=== PATIENT | female | born 2000 | race Caucasian/White ===

== ENCOUNTER → 2025-05-02 15:04 | Outpatient (CLI) | payer OTHER, SELFPAY ==
--- NOTE | 2025-05-02 15:05 | DI.US.S_ITS ---
PROCEDURE: US PELVIC COMPLETE INDICATIONS: OVARIAN CYST, KNOWN DERMOID TECHNIQUE: Real-time scanning was performed of the pelvic organs, with image documentation. Additional endovaginal scanning was necessary due to incomplete visualization of the adnexal and endometrial structures by transabdominal scanning. COMPARISON: None. FINDINGS: Uterus: Uterus is anteverted and normal in size at 6.9 x 4.1 x 5.5 cm. The myometrium is homogeneous. The endometrium measures 5.6 mm combined thickness. Ovaries: The right ovary measures 3.9 x 3.2 x 2.0 cm, with a calculated ovarian volume of 12.8 cc. The right ovary is normal in appearance. There is a dermoid in the left adnexa measuring 10.7 x 5.7 x 8.3 cm with calcification and cystic components. No normal left ovarian tissue is identified. Other: No pathologic free abdominal or pelvic fluid. IMPRESSION: Large left adnexal dermoid measuring up to 10.7 cm. No normal left ovarian tissue is identified. Recommend comparison to prior imaging if available and continued follow-up surveillance if no intervention is performed. Normal appearance of the uterus and right ovary. We strive to produce accurate, complete, and clear reports of imaging services. To assist us in improving patient care, this report was composed using standard report templates and voice recognition software. Therefore, it may contain abnormal punctuation, insertions and/or omissions. Occasional wrong-word or sound-alike substitutions may occur. Though we review the report and make efforts to correct it, we do recommend that the report be read carefully in proper context to recognize any text inaccuracies. Dictated by: Marcin Bonner M.D. on 05/02/2025 at 15:56 Approved by: Marcin Bonner M.D. on 05/02/2025 at 15:58
== END ==
LOC: US 15:04
PROVIDERS: PCP Family Medicine; Referring Provider Family Medicine; Visit Provider Family Medicine
DX: D27.1 Benign neoplasm of left ovary (principal); E55.9 Vitamin D deficiency, unspecified
CPT/HCPCS: 36415; 76856; 80053; 82306; 85025

== ENCOUNTER → 2025-05-02 16:10 | Outpatient (CLI) | payer OTHER, SELFPAY ==
[2025-05-02 17:50] LABS: Add Manual Diff / Slide Review NO; Hematocrit 40.8 % (36-46); Hemoglobin 14.1 g/dL (12.0-16.0); Lymphocytes Absolute Auto 2100 /uL (1100-4500); Mean Corpuscular HGB Conc 34.5 % (30-36); Mean Corpuscular Hemoglobin 30.2 PG (26-34); Mean Corpuscular Volume 87.7 fL (80-100); Platelet Count 278 X10^3/uL (150-400)
[2025-05-02 18:16] LABS: Alanine Aminotransferase 12 IU/L (<35); Albumin 5.0 g/dL (3.5-5.0); Albumin Globulin Ratio 1.8 (1.0-2.8); Alkaline Phosphatase 48 U/L (38-126); Blood Urea Nitrogen 13 mg/dL (7-17); Calcium 9.8 mg/dL (8.4-10.2); Carbon Dioxide 27 mmol/L (22-32); Chloride 100 mmol/L (98-107); Estimated Glomerular Filt Rate > 60 mL/min (>60); Globulin 2.8 g/dL (1.7-4.1); Glucose 85 mg/dL (70-99); HEMOLYSIS < 15 (0-50); Potassium 4.1 mmol/L (3.4-5.1); Sodium 137 mmol/L (137-145); Total Protein 7.8 g/dL (6.3-8.2)
[2025-05-02 18:44] LABS: Vitamin D 25 Hydroxy (D3) 36.2 ng/mL (30.0-100.0)
== END ==
PROVIDERS: PCP Family Medicine; Referring Provider Family Medicine; Visit Provider Family Medicine
DX: E55.9 Vitamin D deficiency, unspecified (principal)
CPT/HCPCS: 36415; 80053; 82306; 85025

== ENCOUNTER 2025-06-25 07:54 | Day surgery (SDC) | payer OTHER, SELFPAY ==
[2025-06-20 10:44] VITALS: BMI 20.9
[2025-06-25] VITALS (7 sets, daily range): BP systolic 101–118; BP diastolic 61–79; PULSE 68–90; RESP 13–20; TEMP 36.3–36.6; O2SAT 97–100
--- NOTE | 2025-06-25 | PATH_ITS ---
[facility] Accession Number: [id number] No. of containers..01 Tissue . 01 Material submitted: . ovary - LEFT FALLOPIAN TUBE, LEFT OVARY, DERMOID CYST . 01 Diagnosis: LEFT OVARY AND FALLOPIAN TUBE, LEFT SALPINGO-OOPHORECTOMY: Mature cystic teratoma. Histologically unremarkable fallopian tube and fragments of fimbria. Negative for malignancy. [facility] [place] 06/29/2025 1434 Local . 01 Electronically signed: . Sara Aguiar DO, Pathologist NPI- [id number] . 01 Gross description: . Received in formalin with two patient identifiers, and left fallopian tube, left ovary, dermoid cyst is a 62-gram, 10.5 x 8.0 x 3.5 cm aggregate of pink-roe, disrupted membranous tissue fragments, grossly consistent with a disrupted cyst. There is an abundant amount admixed hair and sebaceous material. The cyst wall is predominantly smooth and 0.1 cm thick. There is a 4.2 x 3.5 cm yellow-roe fatty area/possible tubercle, comprising 20% of the specimen. There is focal bony material. Teeth are not identified. Residual variant parenchyma is not grossly identified. Also received is a separate 5 cm in length by 0.4 cm in diameter disrupted fallopian tube. There is separate ragged soft tissue/possible fimbria (definitive fimbriae are not grossly identified). Industrial Paramedic sections are submitted as follows: A1-A6: Cyst, to include fatty tubercle. A7: Fallopian tube cross-sections with separate ragged soft tissue/possible fimbriae. ([id number]) /MRV 06/27/2025 0835 Local . 01 Pathologist provided ICD-10: D27.1 . 01 CPT . 01518 Specimen Comment: A courtesy copy of this report has been sent to [facility] Pathology Performed at: [address] [facility] [address] [facility], [place], [place] [id number] MD Devon Arenas MD Phone: [phone]
[2025-06-25] MEDS: ACETAMINOPHEN 325 MG TABLET 975 MG PO (08:15)
[2025-06-25] MEDS: LACTATED RINGERS 1,000 ML 42 ML IV ×2 (08:16→10:27)
--- NOTE | 2025-06-25 08:57 | SUR.OPER ---
Lithotomy on padded OR bed. [place] Pad Positioner under torso. Head on pillow, arms padded and tucked at sides. Legs secured in padded yellow fins stirrups. Final positioning approved by provider
--- NOTE | 2025-06-25 08:59 | P.HPOB_ITS ---
History of Present Illness History of Present Illness Reason for admission: pelvic mass Narrative: Shital Chester is a 25 year old female with a large left ovarian dermoid cyst presenting to same day surgery for laparoscopic left ovarian cystectomy possible left salpinoophorectomy. She has no complaints this am. denies any chest pain, SOB, URI symptoms. previously consented for procedure in clinic. PFSH Medical History (Updated 06/20/25 @ 10:49 by Shauna Moffett, RN) Anxiety Surgical History (Updated 06/20/25 @ 10:49 by Shauna Moffett RN) Hx of eye surgery Hx of adenoidectomy History of D&C Social History Smoking Status: Former smoker Meds Home Medications and Allergies Home Medications ?Medication ?Instructions ?Recorded ?Confirmed ?Type norethindrone (contraceptive) 0.35 0.35 mg PO DAILY #8 4 tabs 05/08/25 06/25/25 Rx mg tablet (Sara) cholecalciferol (vitamin D3) 10 800 unit PO DAILY #60 caps 05/22/25 06/25/25 Rx mcg (400 unit) capsule Allergies Allergy/AdvReac Type Severity Reaction Status Date / Time No Known Drug Allergies Allergy Verified 06/25/25 08:00 Review of Systems Review of Systems ROS: Yes All systems reviewed with the patient and are negative except as otherwise documented Constitutional Constitutional: Reports as per HPI Exam Vital Signs (past 8 hours): - 06/25/25 08:33 Temperature 97.8 F Pulse Rate 76 Respiratory Rate 16 Blood Pressure 118/79 Pulse Oximetry 100 Oxygen Delivery Method Room Air Oxygen Delivery Method Room Air Const General: cooperative, healthy appearing, comfortable and well developed HENNM Head: normal to inspection Resp Effort & Inspection: normal respiratory effort and able to speak in complete sentences Auscultation: clear to auscultation bilaterally Cardio Rate: regular rate Rhythm: regular rhythm Heart Sounds: no murmurs GI Inspection: normal to inspection Palpation: soft Neuro Speech: speech normal Gait: normal gait Psych Appearance: grossly normal Assessment & Plan Assessment and plan (1) Dermoid cyst of left ovary: Status: Acute Plan Patient is a 25yo G0 presents to same day surgery for scheduled laparoscopic ovarian cystectomy. 1. 10cm left dermoid cyst- - scheduled laparoscopic left ovarian cystectomy with possible left salpingoophorectomy - reviewed risks of procedure including bleeding, pain, infection , injury to surrounding organs/tissues including the ureter, bowel. - all questions answered- desires to proceed with surgery - consents signed previously - no preop antibiotics indicated - will proceed to the OR when ready Time-Based Coding :: [TOTAL MINUTES] spent with patient and on the chart (including review of chart, obtaining history, exam, reviewing outside data, placing orders, documenting exam and treatment plan, and counseling patient) on [DATE].
--- NOTE | 2025-06-25 11:48 | PM.GYNOP.1 ---
Operative Date/Time/Diagnoses Date of procedure: 06/25/25 Time of procedure: 09:30 Pre-op diagnosis: Large left dermoid cyst Post-op diagnosis: same Procedure & Clinicians Procedure: Procedures Operation Date: 06/25/25 09:15 Actual Procedure Side Surgeon p Laparoscopic Left salpingoophorectomy, removal of dermoid cyst Left Jaimee Koch DO Indications: Enlaring left dermoid cyst Surgeon: Jaimee Koch Standard Machine Stitcher: Milena Lau Anesthesia Type: General Operative Notes Findings: Large left dermoid cyst ~12cm size filling the pelvis, There does not appear o be an funcstional ovarian tissue surrounding the dermoid cyst. normal right tube and ovary- no cyst on the right ovary. nonenlarged, mobile uterus Closure Type: primary Specimen(s): left tube & ovary Applied: none Estimated blood loss (mL): 50 Blood products transfused: none Procedure in detail: Under GA in the dorsal lithotomy position, the patient was prepped and drapped in the usual sterile fashion. Beginning at the vagina, a ruth catheter was inserted under sterile conditions and left in situ for the remainder of the case. A single sided speculum was placed in the vagina and hulka tenaculum placed for uterine manipulation. speculum removed and overgloves removed. Attention was then turned to the abdomen. 0.25% Marcaine solution was used for infiltration of all port sites. Beginning in the subumbilical area, the skin was first infiltrated with ~ 2 cc of the marcaine solution, then a 5 mm incision was made through the skin with a #11 blade, and finally, the Veress needle was inserted uneventfully in the peritoneal cavity. The opening pressure was < 8 mmHg. The peritoneal cavity was insufflated with CO2 gas to a maximum pressure of 15 mmHg. The Veress needle was removed and a 5 mm trocar was introduced without difficulty through this site into the peritoneal cavity. The laparoscope was then introduced and confirmation of entry was made. Examination of the peritoneal cavity revealed no signs of injury from entry and the above findings. The patient was then placed in steep Trendelenburg and two more 5 mm trocars were placed, one on the left and two on the right, in the standard technique, taking care to avoid the epigastric vessels. All trocars were placed under direct visualization with no inadvertent damage to underlying structures. The uterus was upheld from below and revealed a large left ovarian dermoid cyst filling the pelvis in the posterior cul de sac. This was mobilized out of the pelvis. The decision was made to proceed with an oophorectomy considering there was no normal functional ovarian tissue surrounding the dermoid and high risk of spillage of contents with a normal appearing right ovary with no evidnece of bilaterla dermoid cyst leaving a remaining normal, functioning right ovary and fallopian tube. The Ligasure device was used to ligate and cut the infundibulopelvic ligament and then across the mesosalpinx and the utero-ovarian ligament. The complete tube and ovary were removed and the ovarian pedicles were insected and noted to be hemostatic. The 5mm trocar at the umbilicus was then removed and a 12mm port placed. The endocatch bag was introduced and the 10mm bag noted to be too small so this was removed and a 12mm large bag was introduced and the ovary was placed in the bag. This was brought to the incision and the cyst was incised noting copious greenish fluid and hair. this was drained with the suction and the ovary with cyst wall was able to be removed through the port. There was some spillage on the abdomen near the port sites so patient given 2gm IV ancef to reduce risk of postop infection. The fascia at the 12mm port was closed with 0-vicryl in a running fashion. The camera was then reintroduced through the 5mm port and visualized noting a hemostatic ovarian pedicle. All ports were removed under direct visualization and hemostasis noted. All the incision sites were then closed with 4-0 monocryl sutures and sterristrips placed over incisions. The ruth catheter and huilka tenaculum were removed noting hemostasis. At the end of the procedure, all sponges, instruments, and sharps were counted and correct. The patient was taken to recovery in stable condition. Complications: none Post-operative Condition: stable Disposition: PACU Plan for aftercare: pelvic rest x 2 weeks
== END 2025-06-25 13:16 | disposition home or self-care (01) ==
PROVIDERS: PCP Family Medicine; Referring Provider Family Medicine; Visit Provider Obstetrics & Gynecology
PROC: (CPT 58661; principal; 2025-06-25 09:15)
DX: D27.1 Benign neoplasm of left ovary (principal); Z87.891 Personal history of nicotine dependence
CPT/HCPCS: 58661; 81025; J0689; J1100; J1171; J1885; J2405; J2704; J3010; J7120